=== PATIENT | female | born 1975 | race Caucasian/White ===

== ENCOUNTER 2021-09-20 15:09 | Emergency (ER) | payer MEDICAID ==
[~2021-09-20] VITALS: Ht 167.6 cm; Wt 56.7 kg
[2021-09-20 15:10] VITALS: BP_SYST 110
--- NOTE | 2021-09-20 15:10 | NUR ---
BROUGHT BACK TO BED #8 AND TRIAGED. REPORT GIVEN TO JANET
[2021-09-20] MEDS ORDERED: LIDOCAINE/EPI 1% 1:100000 20 ML VIAL INJ ONE (15:30)
--- NOTE | 2021-09-20 15:54 | NUR ---
DR BAUTISTA AT BEDSIDE PERFORMING PROCEDURE
--- NOTE | 2021-09-20 16:09 | NUR ---
I & D DONE BY DR BAUTISTA, PT TOLERATED FAITRLY.
--- NOTE | 2021-09-20 16:11 | NUR ---
REPORT GIVEN TO MARGE SOLO
[2021-09-20] MEDS ORDERED: ceFAZolin SODIUM 1 GM VIAL IM ONE (16:15)
[2021-09-20] MEDS ORDERED: KETOROLAC TROMETHAMINE 60 MG/2 ML VIAL IM ONE (16:15)
--- NOTE | 2021-09-20 16:33 | NUR ---
MEDICATED PT WITH TORADOL AND ANCEF IM.
[2021-09-20] MEDS ORDERED: CEPH-548 PO (16:47)
[2021-09-20] MEDS ORDERED: NAPR-1172 PO (16:47)
== END 2021-09-20 15:52 | disposition home or self-care (01) ==
LOC: SED 15:09
DX: L02.414 Cutaneous abscess of left upper limb (principal); F11.129 Opioid abuse with intoxication, unspecified
CPT/HCPCS: 10060; 96372; 99284; J0690; J1885

== ENCOUNTER 2021-10-29 20:16 | Emergency (ER) | payer MEDICAID ==
[~2021-10-29] VITALS: Ht 157.5 cm; Wt 59.0 kg
[~2021-10-29 20:16] MED LIST: CEPH-548 PO; NAPR-1172 PO
[2021-10-29 20:30] VITALS: BP_SYST 113
[2021-10-29] MEDS ORDERED: LORazepam 1 MG TABLET PO ONE (20:30)
[2021-10-29] MEDS ORDERED: NACL 0.9% 1,000 ML IV ONE (20:30)
[2021-10-29 21:32] LABS: ALANINE AMINOTRANSFERASE 16 U/L (12-78); ALBUMIN 3.3 g/dL (3.4-4.8); ASPARTATE AMINOTRANSFERASE 22 U/L (10-37); CALCIUM 9.1 mg/dL (8.4-11.0); CREATININE 0.57 mg/dL (0.55-1.30); GLUCOSE 86 mg/dL (70-99); TOTAL BILIRUBIN 0.4 mg/dL (0.0-1.0); UREA NITROGEN, BLOOD 30 mg/dL (8-21)
[2021-10-29 21:34] LABS: ANION GAP 10 (5-15); CHLORIDE 100 mmol/L (98-107); GFR AFRICAN AMERICAN 148 mL/min (>90); POTASSIUM 4.6 mmol/L (3.5-5.1); SODIUM SERUM 136 mmol/L (136-145)
[2021-10-29 21:41] LABS: BASOPHILS # (AUTO) 0.1 K/uL (0.0-0.2); BASOPHILS % (AUTO) 0.5 % (0.0-2.0); EOSINOPHILS # (AUTO) 0.3 K/uL (0.0-0.4); EOSINOPHILS % (AUTO) 1.7 % (0.0-4.0); HEMATOCRIT 40.1 % (36-48); HEMOGLOBIN 13.6 g/dL (12.0-16.0); LYMPHOCYTES # (AUTO) 2.3 K/uL (1.0-5.5); LYMPHOCYTES % (AUTO) 14.8 % (20.5-51.5); MEAN CORPUSCULAR HEMOGLOBIN 31 pg (27-31); MEAN CORPUSCULAR HGB CONC 34 % (32-36); MEAN CORPUSCULAR VOLUME 92 fL (79.0-98.0); MONOCYTES % (AUTO) 6.2 % (1.7-9.3); NEUTROPHILS # (AUTO) 12.1 K/uL (1.8-7.7); NEUTROPHILS % (AUTO) 76.8 % (40.0-70.0); PLATELET COUNT (AUTO) 392 K/uL (130-430); RED BLOOD CELL COUNT(AUTO) 4.35 MIL/uL (4.2-6.2); RED CELL DISTRIBUTION WIDTH 13.7 % (9.0-15.0); WHITE BLOOD COUNT (AUTO) 15.7 K/uL (4.8-10.8)
--- NOTE | 2021-10-29 23:14 | NUR ---
Placed in room 2 . Placed on satellite project site monitor, blood pressure machine and pulse oximeter. To gown for exam. Side rails up. Report given to Silverio SOLO(mickey).
[2021-10-29] MEDS ORDERED: LORazepam 1 MG TABLET ONE (23:44)
--- NOTE | 2021-10-29 23:50 | NUR ---
# 20 gauge angiocath placed to . Use of asceptic technique. Opsite placed over site. Blood return noted. Blood for lab drawn from site. Flushed with 10 cc of normal saline. No evidence of infiltration noted. Patient tolerated well.
[2021-10-30 01:20] VITALS: BP_SYST 130
--- NOTE | 2021-10-30 01:21 | NUR ---
Patient given written and verbal discharge instructions and verbalizes understanding. ER MD discussed with patient the results and treatment provided. Patient in stable condition. ID arm band removed. IV catheter removed intact and dressing applied, no active bleeding. Rx of n/a given. Patient educated on pain management and to follow up with PMD. Pain Scale . Opportunity for questions provided and answered. Medication side effect fact sheet provided.
== END 2021-10-30 01:20 | disposition home or self-care (01) ==
LOC: SED 20:16
DX: R07.89 Other chest pain (principal); F15.129 Other stimulant abuse with intoxication, unspecified; Z79.899 Other long term (current) drug therapy
CPT/HCPCS: 99285; 96360; 71045; 80053; 84703; 85025; 84484; 36415; 93005 ×2; J7030

== ENCOUNTER 2022-04-01 10:27 | Emergency (ER) | payer MEDICAID ==
[~2022-04-01] VITALS: Ht 167.6 cm; Wt 52.2 kg
--- NOTE | 2022-04-01 11:53 | NUR ---
Swabbed for COVID & FLU. Sent to lab.
[2022-04-01 12:45] VITALS: BP_SYST 106
--- NOTE | 2022-04-01 16:09 | NUR ---
Patient to ER bed 01 for evaluation.
--- NOTE | 2022-04-01 16:20 | NUR ---
Patient brought in complaining of abcess to right buttock x 4 days with redness and drainage. Patient reports to taking Meth and heroin. Pain 07/15
--- NOTE | 2022-04-01 16:37 | NUR ---
ER at bedside examining patient.
[2022-04-01] MEDS ORDERED: IBUP-1969 PO (16:43)
[2022-04-01] MEDS ORDERED: CEPH-548 PO (16:43)
[2022-04-01] MEDS ORDERED: KETOROLAC TROMETHAMINE 60 MG/2 ML VIAL IM ONE (16:45)
[2022-04-01 16:49] VITALS: BP_SYST 112
--- NOTE | 2022-04-01 16:49 | NUR ---
Patient given verbal discharge instructions and verbalizes understanding by Dr. Tamez. ER MD discussed with patient the results and treatment provided. Patient in stable condition. ID arm band removed. Rx of cephalexin and ibuprofen given. Patient educated on pain management and to follow up with PMD. Pain Scale 0/10 Opportunity for questions provided and answered. Medication side effect fact sheet provided. Patient left without written discharge instructions
== END 2022-04-01 16:49 | disposition home or self-care (01) ==
LOC: SED 10:27
DX: L02.31 Cutaneous abscess of buttock (principal); L03.317 Cellulitis of buttock; J45.909 Unspecified asthma, uncomplicated; F15.10 Other stimulant abuse, uncomplicated; Z79.899 Other long term (current) drug therapy; Z20.822 Contact with and (suspected) exposure to COVID-19
CPT/HCPCS: 99283; 87426; 36415; 96372; 87804 ×2; J1885

== ENCOUNTER 2022-05-19 20:50 | Emergency (ER) | payer MEDICAID ==
[~2022-05-19] VITALS: Ht 167.6 cm; Wt 56.7 kg
[~2022-05-19 20:50] MED LIST changes: +IBUP-1969 PO
[2022-05-19 21:04] VITALS: BP_SYST 129
[2022-05-19] MEDS ORDERED: KETOROLAC TROMETHAMINE 30 MG VIAL IM ONE (21:30)
[2022-05-19] MEDS ORDERED: NAPR-1172 PO (23:28)
[2022-05-19] MEDS ORDERED: ACETAMINOPHEN 325 MG TABLET PO ONE (23:30)
[2022-05-19 23:47] VITALS: BP_SYST 129
== END 2022-05-19 23:47 | disposition home or self-care (01) ==
LOC: SED 20:50
DX: M25.561 Pain in right knee (principal); J45.909 Unspecified asthma, uncomplicated; Z72.0 Tobacco use; Z79.899 Other long term (current) drug therapy
CPT/HCPCS: 99283; 73564; 96372; J1885

== ENCOUNTER 2022-06-29 10:07 | Emergency (ER) | payer MEDICAID ==
[~2022-06-29] VITALS: Ht 167.6 cm; Wt 54.4 kg
[2022-06-29 10:07] VITALS: BP_SYST 101
[2022-06-29] MEDS ORDERED: CYCLOBENZAPRINE HCL 10 MG TABLET (FLEXERIL) PO ONE (11:45)
[2022-06-29] MEDS ORDERED: KETOROLAC TROMETHAMINE 15 MG VIAL IM ONE (11:45)
--- NOTE | 2022-06-29 12:15 | NUR ---
PT TO RADIOLOGY DEPT VIA WHEEL CHAIR.
--- NOTE | 2022-06-29 12:30 | NUR ---
Pt brought in [facility]. Chief complaint ankle right lateral tissue swelling. Pt states slipped in the rain and impacted right knee and ankle yesterday. Pain gradient 10/10
[2022-06-29] MEDS ORDERED: NAPR-688 PO (12:31)
[2022-06-29] MEDS ORDERED: CYCL10TA24 PO (12:31)
--- NOTE | 2022-06-29 12:40 | NUR ---
Emery tinoco in ED - 06/29/22 at 1313 by SDNKENDALL YOLANDE Briggs at bedside examining patient.
--- NOTE | 2022-06-29 12:40 | NUR ---
ER at bedside examining patient.
--- NOTE | 2022-06-29 12:53 | NUR ---
Patient given written and verbal discharge instructions and verbalizes understanding. ER MD discussed with patient the results and treatment provided. Patient in stable condition. ID arm band removed. Rx of SMR AND NSAID given. Patient educated on pain management and to follow up with PMD. Opportunity for questions provided and answered. Medication side effect fact sheet provided.
[2022-06-29 13:58] VITALS: BP_SYST 148
== END 2022-06-29 12:53 | disposition home or self-care (01) ==
LOC: SED 10:07
DX: S93.401A Sprain of unspecified ligament of right ankle, initial encounter (principal); J45.909 Unspecified asthma, uncomplicated; Z79.899 Other long term (current) drug therapy; W01.0XXA Fall on same level from slipping, tripping and stumbling without subsequent striking against object, initial encounter; Y93.89 Activity, other specified; Y92.89 Other specified places as the place of occurrence of the external cause; Y99.8 Other external cause status
CPT/HCPCS: 99283; 73610; J1885

== ENCOUNTER 2022-08-30 04:39 | Emergency (ER) | payer MEDICAID ==
[~2022-08-30] VITALS: Ht 157.5 cm; Wt 54.4 kg
[~2022-08-30 04:39] MED LIST changes: +CYCL10TA24 PO; +NAPR-688 PO
[2022-08-30 04:43] VITALS: BP_SYST 125
[2022-08-30] MEDS ORDERED: IBUP-1969 PO (05:08)
[2022-08-30 05:32] VITALS: BP_SYST 144
== END 2022-08-30 05:32 | disposition home or self-care (01) ==
LOC: SED 04:39
DX: R07.89 Other chest pain (principal); F15.129 Other stimulant abuse with intoxication, unspecified; J45.909 Unspecified asthma, uncomplicated; Z79.899 Other long term (current) drug therapy
CPT/HCPCS: 93005; 99283

== ENCOUNTER 2022-10-12 12:20 | Emergency (ER) | payer MEDICAID ==
[~2022-10-12] VITALS: Ht 157.5 cm; Wt 65.8 kg
[2022-10-12 13:35] VITALS: BP_SYST 111; PULSE 74; RESP 20; TEMP 98; O2SAT 97
[2022-10-12] MEDS ORDERED: IBUP-1969 PO (13:35)
[2022-10-12 14:26] VITALS: BP_SYST 126; PULSE 71; RESP 18; TEMP 98; O2SAT 97
== END 2022-10-12 13:47 | disposition home or self-care (01) ==
LOC: SED 12:20
DX: S50.02XA Contusion of left elbow, initial encounter (principal); J45.909 Unspecified asthma, uncomplicated; Z79.899 Other long term (current) drug therapy; W19.XXXA Unspecified fall, initial encounter; Y93.89 Activity, other specified; Y92.89 Other specified places as the place of occurrence of the external cause; Y99.8 Other external cause status
CPT/HCPCS: 99283

== ENCOUNTER 2022-12-03 11:59 | Emergency (ER) | payer MEDICAID ==
[~2022-12-03] VITALS: Ht 167.6 cm; Wt 61.2 kg
[2022-12-03 12:03] VITALS: BP_SYST 144; PULSE 78; RESP 18; TEMP 98.3; O2SAT 100
[2022-12-03 14:11] LABS: CLARITY/URINE CLEAR (CLEAR); COLOR,URINE YELLOW (YELLOW); GLUCOSE,URINE NEGATIVE (NEGATIVE); KETONES,URINE NEGATIVE (NEGATIVE); PH,URINE 5.5 (5.0-8.0); PROTEIN URINE NEGATIVE (NEGATIVE)
[2022-12-03 14:12] LABS: BILIRUBIN,URINE NEGATIVE (NEGATIVE); BLOOD, URINE NEGATIVE (NEGATIVE); LEUKOCYTE ESTERASE ,URINE 1+ (NEGATIVE); NITRITE, URINE NEGATIVE (NEGATIVE); UROBILINOGEN,URINE 0.2 (0.2-1.0)
[2022-12-03 14:13] LABS: BACTERIA,URINE RARE /HPF (None Seen); RBC,URINE 0-3 /HPF (0-3)
[2022-12-03] MEDS ORDERED: cefTRIAXone 1 GM in LIDOCAINE 1%, 20 ML MDV 2.1 ML IM ONE (14:15)
[2022-12-03 14:30] LABS: INFLUENZA TYPE A POSITIVE (NEGATIVE)
[2022-12-03 14:31] LABS: INFLUENZA TYPE B NEGATIVE (NEGATIVE)
[2022-12-03] MEDS ORDERED: CYCL10TA24 PO (14:34)
[2022-12-03] MEDS ORDERED: CIPR500T5 PO (14:34)
== END 2022-12-03 14:47 | disposition home or self-care (01) ==
LOC: SED 11:59
DX: N39.0 Urinary tract infection, site not specified (principal); M79.10 Myalgia, unspecified site; R30.0 Dysuria; J02.9 Acute pharyngitis, unspecified; J45.909 Unspecified asthma, uncomplicated; Z79.899 Other long term (current) drug therapy; Z20.822 Contact with and (suspected) exposure to COVID-19
CPT/HCPCS: 99283; 87426; 81000; 36415; 96372; 87804 ×2; J0696; J2001

== ENCOUNTER 2022-12-09 19:21 | Emergency (ER) | payer MEDICAID ==
[~2022-12-09] VITALS: Ht 167.6 cm; Wt 72.6 kg
[~2022-12-09 19:21] MED LIST changes: +CIPR500T5 PO
[2022-12-09 19:50] VITALS: BP_SYST 134; PULSE 84; RESP 19; TEMP 97.9; O2SAT 100
[2022-12-09] MEDS ORDERED: LORazepam 1 MG TABLET PO ONE ×2 (20:00→21:30)
[2022-12-09 20:58] LABS: BASOPHILS % (AUTO) 0.6 % (0.0-2.0); EOSINOPHILS # (AUTO) 0.2 K/uL (0.0-0.4); HEMATOCRIT 38.8 % (36-48); HEMOGLOBIN 12.7 g/dL (12.0-16.0); LYMPHOCYTES # (AUTO) 2.7 K/uL (1.0-5.5); LYMPHOCYTES % (AUTO) 35.2 % (20.5-51.5); MEAN CORPUSCULAR HEMOGLOBIN 31 pg (27-31); MEAN CORPUSCULAR HGB CONC 33 % (32-36); MEAN CORPUSCULAR VOLUME 95 fL (79.0-98.0); MONOCYTES # (AUTO) 0.4 K/uL (0.0-1.0); MONOCYTES % (AUTO) 5.5 % (1.7-9.3); NEUTROPHILS # (AUTO) 4.4 K/uL (1.8-7.7); NEUTROPHILS % (AUTO) 56.7 % (40.0-70.0); PLATELET COUNT (AUTO) 317 K/uL (130-430); RED BLOOD CELL COUNT(AUTO) 4.06 MIL/uL (4.2-6.2); RED CELL DISTRIBUTION WIDTH 14.2 % (9.0-15.0); WHITE BLOOD COUNT (AUTO) 7.7 K/uL (4.8-10.8)
[2022-12-09 21:10] LABS: SERUM HCG (QUALITATIVE) NEGATIVE (NEGATIVE)
[2022-12-09 21:13] LABS: CALCIUM 8.3 mg/dL (8.4-11.0); CREATININE 0.71 mg/dL (0.55-1.30)
[2022-12-09 21:17] LABS: ALBUMIN 3.4 g/dL (3.4-4.8); TOTAL BILIRUBIN 0.2 mg/dL (0.0-1.0)
[2022-12-09] MEDS ORDERED: LORA-259 PO (21:26)
[2022-12-09 22:05] VITALS: BP_SYST 96; PULSE 81; RESP 18; TEMP 98.1; O2SAT 99
== END 2022-12-09 22:05 | disposition home or self-care (01) ==
LOC: SED 19:21
DX: F41.9 Anxiety disorder, unspecified (principal); R06.02 Shortness of breath; R25.1 Tremor, unspecified; J45.909 Unspecified asthma, uncomplicated; Z79.899 Other long term (current) drug therapy
CPT/HCPCS: 36415; 71045; 80053; 81025; 83605; 84703; 85025; 93005; 99285

== ENCOUNTER 2023-03-12 21:42 | Emergency (ER) | payer MEDICAID ==
[~2023-03-12] VITALS: Ht 167.6 cm; Wt 68.9 kg
[~2023-03-12 21:42] MED LIST changes: +LORA-259 PO
[2023-03-12 21:45] VITALS: BP_SYST 141; PULSE 83; RESP 18; TEMP 97.3; O2SAT 100
== END 2023-03-13 00:45 | disposition home or self-care (01) ==
LOC: SED 21:42
DX: S00.83XA Contusion of other part of head, initial encounter (principal); Z79.899 Other long term (current) drug therapy; Y04.0XXA Assault by unarmed brawl or fight, initial encounter; Y93.89 Activity, other specified; Y92.89 Other specified places as the place of occurrence of the external cause; Y99.8 Other external cause status
CPT/HCPCS: 70486-TC; 76376; 99284

== ENCOUNTER 2023-05-20 16:00 | Emergency (ER) | payer MEDICAID ==
[~2023-05-20] VITALS: Ht 167.6 cm; Wt 68.9 kg
[2023-05-20 16:13] VITALS: BP_SYST 139; PULSE 90; RESP 17; TEMP 97.5; O2SAT 98
[2023-05-20] MEDS: HYDROcodone/ACETAMIN 10-325 MG TAB PO ONE (17:27)
[2023-05-20] MEDS: IBUPROFEN 800 MG TABLET PO ONE (17:27)
[2023-05-20 17:31] LABS: SERUM HCG (QUALITATIVE) NEGATIVE (NEGATIVE)
[2023-05-20 17:34] LABS: INR 1.1 (0.8-1.2); PROTHROMBIN TIME 10.9 SECS (9.5-12.5)
[2023-05-20 17:38] LABS: BASOPHILS % (AUTO) 0.2 % (0.0-2.0); EOSINOPHILS % (AUTO) 0.2 % (0.0-4.0); HEMOGLOBIN 14.6 g/dL (12.0-16.0); LYMPHOCYTES # (AUTO) 1.1 K/uL (1.0-5.5); LYMPHOCYTES % (AUTO) 8.3 % (20.5-51.5); MEAN CORPUSCULAR HEMOGLOBIN 33 pg (27-31); MEAN CORPUSCULAR HGB CONC 35 % (32-36); MEAN CORPUSCULAR VOLUME 94 fL (79.0-98.0); MONOCYTES # (AUTO) 0.6 K/uL (0.0-1.0); MONOCYTES % (AUTO) 4.8 % (1.7-9.3); NEUTROPHILS # (AUTO) 11.4 K/uL (1.8-7.7); NEUTROPHILS % (AUTO) 86.5 % (40.0-70.0); PLATELET COUNT (AUTO) 451 K/uL (130-430); RED BLOOD CELL COUNT(AUTO) 4.47 MIL/uL (4.2-6.2); RED CELL DISTRIBUTION WIDTH 13.3 % (9.0-15.0); WHITE BLOOD COUNT (AUTO) 13.2 K/uL (4.8-10.8)
[2023-05-20 17:46] LABS: CALCIUM 8.5 mg/dL (8.4-11.0); CREATININE 0.57 mg/dL (0.55-1.30); POTASSIUM 3.7 mmol/L (3.5-5.1)
[2023-05-20 18:25] LABS: ERYTHROCYTE SEDIMENTATION RATE 11 MM/HR (0-20)
[2023-05-20] MEDS ORDERED: HYDR-3917 PO (18:41)
[2023-05-20 18:53] VITALS: BP_SYST 139; PULSE 90; RESP 17; TEMP 97.5; O2SAT 98
== END 2023-05-20 18:53 | disposition home or self-care (01) ==
LOC: SED 16:00
DX: R51.9 Headache, unspecified (principal); J45.909 Unspecified asthma, uncomplicated; R79.1 Abnormal coagulation profile; Z79.899 Other long term (current) drug therapy
CPT/HCPCS: 36415; 70450-TC; 76376; 80048; 81025; 84703; 85025; 85610; 85651; 85730; 99284

== ENCOUNTER 2023-05-22 16:30 | Emergency (ER) | payer MEDICAID ==
[~2023-05-22] VITALS: Ht 167.6 cm; Wt 70.8 kg
[~2023-05-22 16:30] MED LIST changes: +HYDR-3917 PO
[2023-05-22 16:35] VITALS: BP_SYST 136; PULSE 85; RESP 20; TEMP 97.7; O2SAT 98
[2023-05-22] MEDS ORDERED: HYDR-3917 PO (22:16)
[2023-05-22] MEDS ORDERED: IBUP-1969 PO (22:16)
[2023-05-22 22:34] VITALS: BP_SYST 134; PULSE 83; RESP 18; TEMP 97.7; O2SAT 98
== END 2023-05-22 22:34 | disposition home or self-care (01) ==
LOC: SED 16:30
DX: S80.212A Abrasion, left knee, initial encounter (principal); M79.641 Pain in right hand; J45.909 Unspecified asthma, uncomplicated; F15.90 Other stimulant use, unspecified, uncomplicated; W01.0XXA Fall on same level from slipping, tripping and stumbling without subsequent striking against object, initial encounter; Z79.899 Other long term (current) drug therapy; Y93.89 Activity, other specified; Y92.89 Other specified places as the place of occurrence of the external cause; Y99.8 Other external cause status
CPT/HCPCS: 73564; 99284

== ENCOUNTER 2023-05-31 10:24 | Emergency (ER) | payer MEDICAID ==
[~2023-05-31] VITALS: Ht 167.6 cm; Wt 68.5 kg
[2023-05-31 10:25] VITALS: BP_SYST 116; PULSE 77; RESP 19; TEMP 98.4; O2SAT 96
[2023-05-31] MEDS: KETOROLAC TROMETHAMINE 30 MG VIAL IM ONE (11:24)
[2023-05-31 11:55] VITALS: BP_SYST 125; PULSE 86; RESP 16; TEMP 97.7; O2SAT 98
== END 2023-05-31 11:53 | disposition home or self-care (01) ==
LOC: SED 10:24
DX: M25.531 Pain in right wrist (principal); M25.532 Pain in left wrist; J45.909 Unspecified asthma, uncomplicated; F19.10 Other psychoactive substance abuse, uncomplicated; Z79.899 Other long term (current) drug therapy
CPT/HCPCS: 99283; 96372; J1885

== ENCOUNTER 2023-07-08 12:40 | Emergency (ER) | payer MEDICAID ==
[~2023-07-08] VITALS: Ht 167.6 cm; Wt 68.0 kg
[2023-07-08 12:44] VITALS: BP_SYST 131; PULSE 87; RESP 18; TEMP 98.3; O2SAT 98
[2023-07-08] MEDS: IBUPROFEN 600 MG TABLET PO ONE (13:26)
[2023-07-08] MEDS: ONDANSETRON 4 MG ODT TAB PO ONE (13:27)
[2023-07-08] MEDS ORDERED: ONDA-8 TL (13:37)
[2023-07-08] MEDS ORDERED: IBUP-1969 PO (13:37)
[2023-07-08 13:51] VITALS: BP_SYST 131; PULSE 87; RESP 18; TEMP 98.3; O2SAT 98
== END 2023-07-08 13:48 | disposition home or self-care (01) ==
LOC: SED 12:40
DX: S63.501A Unspecified sprain of right wrist, initial encounter (principal); S80.212A Abrasion, left knee, initial encounter; S80.211A Abrasion, right knee, initial encounter; J45.909 Unspecified asthma, uncomplicated; F15.10 Other stimulant abuse, uncomplicated; Z79.899 Other long term (current) drug therapy; W01.0XXA Fall on same level from slipping, tripping and stumbling without subsequent striking against object, initial encounter; Y93.89 Activity, other specified; Y92.89 Other specified places as the place of occurrence of the external cause; Y99.8 Other external cause status
CPT/HCPCS: 99283; 73110; 81025; 29125; Q0162

== ENCOUNTER 2023-08-17 09:46 | Emergency (ER) | payer MEDICAID ==
[~2023-08-17] VITALS: Ht 167.6 cm; Wt 65.3 kg
[~2023-08-17 09:46] MED LIST changes: +DOXY100T2 PO; +ONDA-8 TL
[2023-08-17 09:58] VITALS: BP_SYST 107; PULSE 91; RESP 18; TEMP 98.9; O2SAT 98
[2023-08-17 10:51] LABS: BASOPHILS % (AUTO) 0.7 % (0.0-2.0); EOSINOPHILS # (AUTO) 0.1 K/uL (0.0-0.4); EOSINOPHILS % (AUTO) 2.8 % (0.0-4.0); HEMATOCRIT 41.1 % (36-48); HEMOGLOBIN 14.1 g/dL (12.0-16.0); LYMPHOCYTES # (AUTO) 2.1 K/uL (1.0-5.5); LYMPHOCYTES % (AUTO) 42.7 % (20.5-51.5); MEAN CORPUSCULAR HEMOGLOBIN 32 pg (27-31); MEAN CORPUSCULAR HGB CONC 34 % (32-36); MEAN CORPUSCULAR VOLUME 94 fL (79.0-98.0); MONOCYTES # (AUTO) 0.5 K/uL (0.0-1.0); MONOCYTES % (AUTO) 9.8 % (1.7-9.3); NEUTROPHILS # (AUTO) 2.1 K/uL (1.8-7.7); PLATELET COUNT (AUTO) 361 K/uL (130-430); RED BLOOD CELL COUNT(AUTO) 4.36 MIL/uL (4.2-6.2); RED CELL DISTRIBUTION WIDTH 13.6 % (9.0-15.0); WHITE BLOOD COUNT (AUTO) 4.8 K/uL (4.8-10.8)
[2023-08-17 10:57] LABS: BILIRUBIN,URINE NEGATIVE (NEGATIVE); BLOOD, URINE NEGATIVE (NEGATIVE); CLARITY/URINE SL CLOUDY (CLEAR); COLOR,URINE YELLOW (YELLOW); GLUCOSE,URINE NEGATIVE (NEGATIVE); KETONES,URINE NEGATIVE (NEGATIVE); LEUKOCYTE ESTERASE ,URINE NEGATIVE (NEGATIVE); NITRITE, URINE NEGATIVE (NEGATIVE); PH,URINE 5.5 (5.0-8.0); PROTEIN URINE TRACE (NEGATIVE); UROBILINOGEN,URINE 0.2 (0.2-1.0)
[2023-08-17 11:06] LABS: INFLUENZA TYPE A Negative (NEGATIVE); INFLUENZA TYPE B NEGATIVE (NEGATIVE)
[2023-08-17 11:07] LABS: BACTERIA,URINE MODERATE /HPF (None Seen); CALCIUM OXALATE CRYSTALS,UR None Seen /HPF (None Seen); CALCIUM PHOSPHATE CRYSTALS,UR None Seen /HPF (None Seen); COARSE GRANULAR CASTS,URINE None Seen /LPF (None Seen); FINE GRANULAR CASTS,URINE None Seen /LPF (None Seen); HYALINE CASTS, URINE None Seen /LPF (None Seen); MUCUS,URINE 2+ /LPF (None Seen); OTHER CASTS, URINE None Seen /LPF (None Seen); OTHER CRYSTALS,URINE None Seen /HPF (None Seen); RBC,URINE 0-3 /HPF (0-3); TRICHOMONAS,URINE None Seen /HPF (None Seen); TRIPLE PHOSPHATE CRYSTAL,UR None Seen /HPF (None Seen); URIC ACID CRYSTALS,URINE None Seen /HPF (None Seen); URINE AMORPHOUS PHOSPHATES None Seen /HPF (None Seen); URINE AMORPHOUS URATE None Seen /HPF (None Seen); WAXY CASTS,URINE None Seen /LPF (None Seen); YEAST,URINE None Seen /HPF (None Seen)
[2023-08-17 11:13] LABS: ANION GAP 12 (5-15); CALCIUM 8.7 mg/dL (8.4-11.0); CARBON DIOXIDE 26 mmol/L (23-29); CHLORIDE 103 mmol/L (98-107); GLUCOSE 98 mg/dL (74-106); POTASSIUM 3.9 mmol/L (3.5-5.1); SODIUM SERUM 141 mmol/L (136-145); UREA NITROGEN, BLOOD 16 mg/dL (8-21)
[2023-08-17 11:14] LABS: ALANINE AMINOTRANSFERASE 18 U/L (12-78); ALBUMIN 3.5 g/dL (3.4-4.8); ASPARTATE AMINOTRANSFERASE 21 U/L (10-37); BARBITURATE, URINE NEGATIVE (NEG <=200); BENZODIAZEPINE, URINE NEGATIVE (NEG <=150); BILIRUBIN,DIRECT 0.1 mg/dL (0.0-0.3); CANNABINOID, URINE NEGATIVE (NEG <=50); COCAINE, URINE NEGATIVE (NEG <=150); CREATININE 0.77 mg/dL (0.55-1.30); GFR AFRICAN AMERICAN 104 mL/min (>90); LIPASE 23 U/L (16-77); METHAMPHETAMINES SCREEN,URINE POSITIVE (NEG <=500); OPIATE, URINE NEGATIVE (NEG <=100); PHENCYCLIDINE SCREEN,URINE NEGATIVE (NEG <=25); TOTAL BILIRUBIN 0.6 mg/dL (0.0-1.0); TOTAL PROTEIN, SERUM 7.6 g/dL (6.4-8.3); UR TRICYCLIC ANTIDEPRESSANTS POSITIVE (NEG <=300); URINE AMPHETAMINE POSITIVE (NEG <=500); URINE METHADONE POSITIVE (NEG <=200); URINE OXYCODONE SCREEN NEGATIVE (NEG <=100)
[2023-08-17 11:30] LABS: GFR NON AFRICAN-AMERICAN 86 mL/min (>90)
[2023-08-17] MEDS: KETOROLAC TROMETHAMINE 15 MG VIAL IVP ONE (11:40)
[2023-08-17 12:38] VITALS: BP_SYST 124; PULSE 84; RESP 18; TEMP 97.8; O2SAT 96
== END 2023-08-17 12:49 | disposition home or self-care (01) ==
LOC: SED 09:46
DX: K80.20 Calculus of gallbladder without cholecystitis without obstruction (principal); R10.9 Unspecified abdominal pain; M54.2 Cervicalgia; J45.909 Unspecified asthma, uncomplicated; F17.200 Nicotine dependence, unspecified, uncomplicated; F15.10 Other stimulant abuse, uncomplicated; Z20.822 Contact with and (suspected) exposure to COVID-19
CPT/HCPCS: 99285; 74176; 96374; 71045; 87426; 80307; 80076; 80048; 83880; 83690; 85025; 84484; 36415; 93005; 81025; 87804 ×2; 81000; 81001; 81015; J1885

== ENCOUNTER 2023-09-29 16:12 | Emergency (ER) | payer MEDICAID ==
[~2023-09-29] VITALS: Ht 167.6 cm; Wt 59.9 kg
[~2023-09-29 16:12] MED LIST changes: -CEPH-548 PO; -CIPR500T5 PO; -CYCL10TA24 PO; -DOXY100T2 PO; +LEVO750T64 PO; +METR-154 PO; -NAPR-688 PO
[2023-09-29 16:25] VITALS: BP_SYST 138; PULSE 100; RESP 22; TEMP 97.7; O2SAT 95
[2023-09-29] MEDS: KETOROLAC TROMETHAMINE 30 MG VIAL IVP ONE (16:47)
[2023-09-29 16:53] LABS: EOSINOPHILS # (AUTO) 0.1 K/uL (0.0-0.4)
[2023-09-29 17:01] LABS: BASOPHILS # (AUTO) 0.1 K/uL (0.0-0.2); BASOPHILS % (AUTO) 0.7 % (0.0-2.0); EOSINOPHILS % (AUTO) 0.6 % (0.0-4.0); HEMATOCRIT 36.8 % (36-48); HEMOGLOBIN 12.9 g/dL (12.0-16.0); LYMPHOCYTES # (AUTO) 2.5 K/uL (1.0-5.5); MEAN CORPUSCULAR HEMOGLOBIN 32 pg (27-31); MEAN CORPUSCULAR HGB CONC 35 % (32-36); MEAN CORPUSCULAR VOLUME 92 fL (79.0-98.0); MONOCYTES # (AUTO) 0.9 K/uL (0.0-1.0); MONOCYTES % (AUTO) 10.7 % (1.7-9.3); NEUTROPHILS # (AUTO) 5.3 K/uL (1.8-7.7); PLATELET COUNT (AUTO) 411 K/uL (130-430); WHITE BLOOD COUNT (AUTO) 8.8 K/uL (4.8-10.8)
[2023-09-29 17:16] LABS: ALBUMIN 3.9 g/dL (3.4-4.8); BILIRUBIN,DIRECT 0.2 mg/dL (0.0-0.3); CALCIUM 9.2 mg/dL (8.4-11.0); CREATININE 0.84 mg/dL (0.55-1.30); POTASSIUM 3.5 mmol/L (3.5-5.1); TOTAL BILIRUBIN 0.7 mg/dL (0.0-1.0)
[2023-09-29 18:30] VITALS: BP_SYST 138; PULSE 100; RESP 18; TEMP 97.7; O2SAT 95
== END 2023-09-29 18:30 | disposition home or self-care (01) ==
LOC: SED 16:12
DX: K80.50 Calculus of bile duct without cholangitis or cholecystitis without obstruction (principal); R10.13 Epigastric pain; R11.0 Nausea; F32.A Depression, unspecified; J45.909 Unspecified asthma, uncomplicated; Z79.899 Other long term (current) drug therapy; Z79.2 Long term (current) use of antibiotics
CPT/HCPCS: 99283; 96374; 80076; 80048; 83690; 85025; 36415; J1885

== ENCOUNTER 2023-11-23 18:21 | Emergency (ER) | payer MEDICAID ==
[~2023-11-23] VITALS: Ht 167.6 cm; Wt 52.2 kg
[2023-11-23 18:25] VITALS: BP_SYST 152; PULSE 111; RESP 20; TEMP 97.2; O2SAT 99
[2023-11-23 19:03] VITALS: BP_SYST 152; PULSE 111; RESP 20; TEMP 97.2; O2SAT 99
== END 2023-11-23 18:42 ==
LOC: SED 18:21
DX: M54.9 Dorsalgia, unspecified (principal); F32.A Depression, unspecified; J45.909 Unspecified asthma, uncomplicated; Z79.899 Other long term (current) drug therapy; Z79.2 Long term (current) use of antibiotics
CPT/HCPCS: 99283

== ENCOUNTER 2024-01-26 17:14 | Emergency (ER) | payer MEDICAID ==
[~2024-01-26] VITALS: Ht 167.6 cm; Wt 57.2 kg
[2024-01-26 18:28] VITALS: BP_SYST 129; PULSE 98; RESP 18; TEMP 97.6; O2SAT 98
[2024-01-26] MEDS ORDERED: NAPR-690 PO (21:30)
[2024-01-26] MEDS: IBUPROFEN 600 MG TABLET PO ONE (21:43)
[2024-01-26 21:45] VITALS: BP_SYST 142; PULSE 80; RESP 23; TEMP 97.1; O2SAT 99
== END 2024-01-26 21:45 | disposition home or self-care (01) ==
LOC: SED 17:14
DX: S83.92XA Sprain of unspecified site of left knee, initial encounter (principal); S39.012A Strain of muscle, fascia and tendon of lower back, initial encounter; F20.9 Schizophrenia, unspecified; J45.909 Unspecified asthma, uncomplicated; W01.0XXA Fall on same level from slipping, tripping and stumbling without subsequent striking against object, initial encounter; Y93.89 Activity, other specified; Y92.89 Other specified places as the place of occurrence of the external cause; Y99.8 Other external cause status
CPT/HCPCS: 72110; 73560; 99284